=== PATIENT | male | born 1975 | race Hispanic/Latino ===

== ENCOUNTER 2022-08-24 13:42 | Emergency (ER) | payer SELFPAY ==
--- NOTE | 2022-08-24 14:52 | RAD REPORT ---
EXAM DESCRIPTION: RAD - Knee Left 3 View - 08/24/2022 2:12 pm CLINICAL HISTORY: Pain;Swelling COMPARISON: No comparisons FINDINGS/IMPRESSION: No acute fracture. Small knee effusion. Mild to moderate patellofemoral compart ment degenerative changes. Mild medial compartment narrowing.
--- NOTE | 2022-08-24 15:05 | EDPHYS ---
Physician Documentation [facility] Name: Earl Vallecillo Age: 47 yrs Sex: Male : 1975 Arrival Date: 08/24/2022 Time: 13:42 Bed DIS4 Private MD: ED Physician Je Wilson HPI: 08/24 14:12 This 47 yrs old Male presents to ER via Ambulatory with complaints of Knee rn Pain - swelling. 14:18 The patient presents with pain, swelling. The complaints affect the left knee. Onset: rn The symptoms/episode began/occurred 1 week(s) ago. Modifying factors: The symptoms are alleviated by nothing. the symptoms are aggravated by movement, weight bearing, bending knee. Associated signs and symptoms: Pertinent positives: swelling, Pertinent negatives fever, rash, warmth, weakness. Severity of symptoms: At their worst the symptoms were mild, in the emergency department the symptoms are unchanged. The patient has experienced similar episodes in the past. The patient has not recently seen a physician. Pt reports left knee pain and pain in wrists and "other joints". Knee pain for 1 week, no fever, no injury or trauma, has happened before and had knee aspiration, thinks was told it was gout but not sure. No warmth. Reports currently no pain, just swollen. . Historical: - Allergies: 13:58 No Known Allergies; vg1 - PSHx: 13:58 Left Knee Aspiration; vg1 - Immunization history:: Client reports having NOT received the Covid vaccine. - Social history:: Smoking status: Patient reports the use of cigarette tobacco products, smokes one-half pack cigarettes per day. - Family history:: not pertinent. - Hospitalizations: : No recent hospitalization is reported. ROS: 14:18 Constitutional: Negative for fever, chills, and weight loss, Cardiovascular: Negative rn for chest pain, palpitations, and edema, Respiratory: Negative for shortness of breath, cough, wheezing, and pleuritic chest pain, Abdomen/GI: Negative for abdominal pain, nausea, vomiting, diarrhea, and constipation, Back: Negative for injury and pain, MS/Extremity: + swelling left knee Skin: Negative for injury, rash, and discoloration, Neuro: Negative for headache, weakness, numbness, tingling, and seizure. Exam: 14:18 Constitutional: This is a well developed, well nourished patient who is awake, alert, rn and in no acute distress. Skin: Warm, dry with normal turgor. Normal color with no rashes, no lesions, and no evidence of cellulitis. MS/ Extremity: Pulses equal, no cyanosis. Neurovascular intact. Full, normal range of motion. Mild swelling. Ambulatory without difficulty or even limp. No warmth of knee. Vital Signs: 13:51 BP 140 / 90; Pulse 85; Resp 16; Temp 97.8(O); Pulse Ox 99% on R/A; Weight 86.18 kg; vg1 Height 6 ft. 0 in. ; 13:51 Body Mass Index 25.77 (86.18 kg, 182.88 cm) vg1 MDM: 13:45 Patient medically screened. rn 15:00 Differential diagnosis: degenerative joint disease, effusion, gout. Data reviewed: rn vital signs, nurses notes, radiologic studies, plain films, and as a result, I will discharge patient. Independent interpretation of the following test(s) in the Emergency Department X-Ray: My interpretation is Xray left knee images neg for fracture/dislocation per my interpretation. Counseling: I had a detailed discussion with the patient and/or guardian regarding: the historical points, exam findings, and any diagnostic results supporting the discharge/admit diagnosis, radiology results, the need for outpatient follow up, to return to the emergency department if symptoms worsen or persist or if there are any questions or concerns that arise at home. Special discussion: I discussed with the patient/guardian in detail that at this point there is no indication for admission to the hospital. It is understood, however, that if the symptoms persist or worsen the patient needs to return immediately for re-evaluation. Based on the history and exam findings, there is no indication for further emergent testing or inpatient evaluation. I discussed with the patient/guardian the need to see the orthopedic surgeon for further evaluation of the symptoms. 08/24 13:57 Order name: XRAY Knee LEFT 3 view; Complete Time: 14:56 rn Administered Medications: 15:08 Drug: Dexamethasone IM 10 mg Route: IM; Site: left deltoid; vg1 15:18 Follow up: Response: No adverse reaction vg1 15:09 Drug: Ketorolac IM 30 mg Route: IM; Site: right deltoid; vg1 15:18 Follow up: Response: No adverse reaction vg1 Disposition Summary: 08/24/22 15:04 Discharge Ordered Location: Home rn Problem: an ongoing problem rn Symptoms: have improved rn Condition: Stable rn Diagnosis - Effusion, left knee rn - Pain in left knee rn Followup: rn - With: Erik Monet MD - When: As needed - Reason: Recheck today's complaints, Re-evaluation by your physician Discharge Instructions: - Discharge Summary Sheet rn - Arthritis rn - Knee Effusion rn - Acute Knee Pain, Adult rn Forms: - Medication Reconciliation Form rn - Thank You Letter rn - Antibiotic frit mixer and burner - Prescription Opioid Use rn Prescriptions: - Diclofenac Sodium 75 mg Oral tablet,delayed release (DR/EC) - take 1 tablet by ORAL route 2 times per day; 10 tablet; Refills: 0, Product rn Selection Permitted - Medrol (Pk) 4 mg Oral Tablets, Dose Pack - take 1 tablet by ORAL route as directed - follow package instructions; 1 rn packet; Refills: 0, Product Selection Permitted Signatures: Dispatcher [employer] Je Stock MD MD rn Garcia, Victoria, RN RN vg1
--- NOTE | 2022-08-24 15:05 | ER ---
Nurse's Notes [facility] Name: Earl Vallecillo Age: 47 yrs Sex: Male : 1975 Arrival Date: 08/24/2022 Time: 13:42 Bed DIS4 Private MD: Diagnosis: Effusion, left knee;Pain in left knee Presentation: 08/24 13:51 Chief complaint: Patient states: Left knee swelling x1 week; denies injury/falls, vg1 stated has a hx of knee aspiration. Coronavirus screen: Vaccine status: Patient reports being unvaccinated. Client denies travel out of the [place] in the last 14 days. Ebola Screen: Patient negative for fever greater than or equal to 101.5 degrees Fahrenheit, and additional compatible Ebola Virus Disease symptoms Patient denies exposure to infectious person. Patient denies travel to an Ebola-affected area in the 21 days before illness onset. Initial Sepsis Screen: Does the patient meet any 2 criteria? No. Patient's initial sepsis screen is negative. Does the patient have a suspected source of infection? No. Patient's initial sepsis screen is negative. Risk Assessment: Do you want to hurt yourself or someone else? Patient reports no desire to harm self or others. Onset of symptoms was August 17, 2022. 13:51 Method Of Arrival: Ambulatory vg1 13:51 Acuity: EMELI 4 vg1 Triage Assessment: 13:58 General: Appears in no apparent distress. uncomfortable, Behavior is calm, cooperative. vg1 Pain: Complains of pain in left knee Pain currently is 0 out of 10 on a pain scale. Musculoskeletal: Swelling present in left knee. Historical: - Allergies: 13:58 No Known Allergies; vg1 - PSHx: 13:58 Left Knee Aspiration; vg1 - Immunization history:: Client reports having NOT received the Covid vaccine. - Social history:: Smoking status: Patient reports the use of cigarette tobacco products, smokes one-half pack cigarettes per day. - Family history:: not pertinent. - Hospitalizations: : No recent hospitalization is reported. Screenin:18 [facility] ED Fall Risk Assessment (Adult) History of falling in the last 3 months, vg1 including since admission. Abuse screen: Denies threats or abuse. Denies injuries from another. Nutritional screening: No deficits noted. Tuberculosis screening: No symptoms or risk factors identified. Assessment: 15:18 Reassessment: Patient appears in no apparent distress at this time. No changes from vg1 previously documented assessment. Patient and/or family updated on plan of care and expected duration. Pain level reassessed. Patient is alert, oriented x 3, equal unlabored respirations, skin warm/dry/pink. Vital Signs: 13:51 BP 140 / 90; Pulse 85; Resp 16; Temp 97.8(O); Pulse Ox 99% on R/A; Weight 86.18 kg; vg1 Height 6 ft. 0 in. ; 13:51 Body Mass Index 25.77 (86.18 kg, 182.88 cm) vg1 ED Course: 13:43 Patient arrived in ED. am2 13:45 Je Wilson MD is Attending Physician. rn 13:58 Triage completed. vg1 13:58 Arm band placed on. vg1 14:14 XRAY Knee LEFT 3 view In Process Unspecified. EDMS 15:03 Erik Monet MD is Referral Physician. rn 15:18 Patient has correct armband on for positive identification. vg1 15:18 No provider procedures requiring assistance completed. Patient did not have IV access vg1 during this emergency room visit. Administered Medications: 15:08 Drug: Dexamethasone IM 10 mg Route: IM; Site: left deltoid; vg1 15:18 Follow up: Response: No adverse reaction vg1 15:09 Drug: Ketorolac IM 30 mg Route: IM; Site: right deltoid; vg1 15:18 Follow up: Response: No adverse reaction vg1 Medication: 15:19 VIS not applicable for this client. vg1 Outcome: 15:04 Discharge ordered by . rn 15:18 Discharged to home ambulatory, with family. vg1 15:18 Condition: good 15:18 Discharge instructions given to patient, Instructed on discharge instructions, follow up and referral plans. medication usage, Demonstrated understanding of instructions, follow-up care, medications, Prescriptions given X 2. 15:19 Patient left the ED. vg1 Signatures: Dispatcher [employer] EDMS Je Wilson MD MD rn Moreno, Amanda am2 Waleska Lino RN RN vg1
[2022-08-24] MEDS ORDERED: KETOROLAC 30 MG/ML INJ ONE (15:14)
[2022-08-24] MEDS ORDERED: dexAMETHasone 10 MG/ML VIAL ONE (15:14)
[2022-08-24 15:28] VITALS: BP 140/90; TEMP 97.8; O2SAT 99
[2022-08-24] MEDS ORDERED: FLUCONAZOLE 100 MG TAB ONE (17:01)
== END 2022-08-24 15:19 | disposition home or self-care (01) ==
LOC: ER 13:42
DX: M25.462 Effusion, left knee (principal); F17.210 Nicotine dependence, cigarettes, uncomplicated
CPT/HCPCS: 96372; 99284; J1100